=== PATIENT | female | born 1965 | race Caucasian/White ===

== ENCOUNTER 2018-11-07 14:28 | Emergency (ER) | payer SELFPAY, MEDICAID ==
[2018-11-07] MEDS: ERTAPENEM SODIUM 1 GM in SOD CHLORIDE 0.9% 100 ML IVPB (15:59)
== END 2018-11-07 16:15 | disposition home or self-care (01) ==
LOC: FTE 14:28
DX: S61.452A Open bite of left hand, initial encounter (principal); L08.9 Local infection of the skin and subcutaneous tissue, unspecified; W55.01XA Bitten by cat, initial encounter; Y92.9 Unspecified place or not applicable
CPT/HCPCS: 96365; 99284-25